=== PATIENT | female | born 1985 | race Caucasian/White ===

== ENCOUNTER 2017-08-15 12:59 | Emergency (ER) | payer OTHER ==
[~2017-08-15] VITALS: Ht 154.9 cm; Wt 68.4 kg
[~2017-08-15 12:59] MED LIST: ACYCLOVIR200 MG PO; ACYCLOVIR400 MG PO; B COMPLETE1 EACH PO; COLACE100 MG PO; ENDOCET 5-3251 EACH PO; FEOSOL325 MG PO; FERROUS SULFAT325 MG PO; FLOMAX0.4 MG PO; IBUPROFEN800 MG PO; LORTAB 5-325 M1 EACH PO; MOTRIN800 MG PO; NAPROSYN500 MG PO; NORCO 5/3251 TABLET PO; PRENATAL ONE T1 EACH PO; PRENATAL TABLE1 EAC3 PO; Rugrats,Centrum Kids PO; ZOFRAN ODT4 MG PO
[2017-08-15 13:36] LABS: HEMATOCRIT 40.1 % (36.0-46.0); HEMOGLOBIN 13.6 G/DL (11.9-15.5); MCH 30.3 PG (29.0-34.0); MCHC 33.9 G/DL (30.0-36.0); MCV 89.3 FL (83-99); PLATELET COUNT 249 K/uL (156-360); RBC DIS.WIDTH-CV 12.6 % (11.8-14.6); RBC DIS.WIDTH-SD 41.3 % (39-53); RED BLOOD COUNT 4.49 M/uL (3.80-5.20); WHITE BLOOD COUNT 7.2 K/uL (4.1-10.2)
[2017-08-15 13:45] LABS: ALBUMIN 4.9 g/dL (3.2-4.8); CHLORIDE 104 mEq/L (99-109); POTASSIUM 3.9 mEq/L (3.7-5.4); SODIUM 140 mEq/L (136-147)
[2017-08-15 13:47] LABS: GLUCOSE 103 mg/dL (70-99)
[2017-08-15 13:49] LABS: TOTAL BILIRUBIN 0.5 mg/dL (0.0-1.0)
[2017-08-15 13:51] LABS: ALKALINE PHOSPHATASE 65 IU/L (3-129); CREATININE 0.8 mg/dL (0.6-1.3); GFR ESTIMATE (CALCULATED) > 59 mL/min/
[2017-08-15 13:52] LABS: AST (GOT) 18 IU/L (2-34); UREA NITROGEN (BUN) 12 mg/dL (9-23)
[2017-08-15 13:54] LABS: ALT (GPT) 17 IU/L (3-49); LIPASE 28 U/L (1.0-51.0)
[2017-08-15 14:00] LABS: QUANTITATIVE HCG < 4.0 MIU/ML
[2017-08-15 14:16] LABS: APPEARANCE CLEAR ((CLEAR)); BILIRUBIN NEGATIVE; BLOOD NEGATIVE; COLOR YELLOW ((YELLOW)); GLUCOSE (STRIP) NEGATIVE; KETONES NEGATIVE; LEUKOCYTES NEGATIVE; NITRITE NEGATIVE; PROTEIN (STRIP) 30; UROBILINOGEN 0.2 MG/DL (0.2-1.0)
[2017-08-15] MEDS ORDERED: ULTRAM50 MG PO (16:18)
[2017-08-15 16:28] VITALS: BP 99/65
== END 2017-08-15 16:30 | disposition home or self-care (01) ==
LOC: EME 12:59
PROVIDERS: Nurse Practitioner Family
DX: R10.31 Right lower quadrant pain (principal); K80.20 Calculus of gallbladder without cholecystitis without obstruction; F17.200 Nicotine dependence, unspecified, uncomplicated; Z87.442 Personal history of urinary calculi
CPT/HCPCS: 74177; 80053; 81003; 83690; 84702; 85027; 99281; 99285; J1885; J7030

== ENCOUNTER 2017-09-04 10:46 | Day surgery (SDC) | payer OTHER ==
[~2017-09-04] VITALS: Ht 154.9 cm; Wt 68.0 kg
[~2017-09-04 10:46] MED LIST changes: +NEXPLANON68 MG SC; +NITROFURANTOIN100 MG PO; +PRILOSEC20 MG PO; +ULTRAM50 MG PO; +VITAMIN B12 PO
[2017-09-04 11:42] VITALS: BP 111/70
[2017-09-04] MEDS ORDERED: OXYCODONE HCL5 MG PO (14:35)
[2017-09-04 15:52] VITALS: BP 104/70
[2017-09-04 17:00] VITALS: BP 120/73
== END 2017-09-04 17:18 | disposition home or self-care (01) ==
LOC: SDC 10:46
PROC: 0FT44ZZ Resection of Gallbladder, Percutaneous Endoscopic Approach (ICD-10-PCS; principal; 2017-09-04)
DX: K80.10 Calculus of gallbladder with chronic cholecystitis without obstruction (principal); K82.8 Other specified diseases of gallbladder; E66.9 Obesity, unspecified; Z68.28 Body mass index [BMI] 28.0-28.9, adult; F17.200 Nicotine dependence, unspecified, uncomplicated; Z82.49 Family history of ischemic heart disease and other diseases of the circulatory system
CPT/HCPCS: 88304; J1170; J1885; J2250; J2405; J3010; J7120; S0074